=== PATIENT | female | born 2000 | race Caucasian/White ===

== ENCOUNTER → 2021-08-18 | Outpatient (REF) | payer OTHER ==
[2021-08-18 21:11] LABS: HCG, SERUM QUALITATIVE POSITIVE (NEGATIVE)
[2021-08-18 21:26] LABS: HCG, SERUM QUANTITATIVE 5700 MIU/ML; HEPATITIS C VIRUS ABY INDEX < 0.0 INDEX (<0.8); HIV 1&2 SCREEN CENTAUR NEGATIVE (NEGATIVE)
== END ==
LOC: M LAB REF 20:01
PROVIDERS: ATTEND Physician Assistant Medical
DX: Z34.90 Encounter for supervision of normal pregnancy, unspecified, unspecified trimester (principal); Z3A.00 Weeks of gestation of pregnancy not specified

== ENCOUNTER 2021-08-29 22:30 | Emergency (ER) | payer OTHER ==
[~2021-08-29] VITALS: Ht 154.9 cm; Wt 79.5 kg
[2021-08-29 22:31] VITALS: BP 121/69
== END 2021-08-30 00:38 | disposition left against medical advice (07) ==
LOC: M ED 22:30
DX: Z53.21 Procedure and treatment not carried out due to patient leaving prior to being seen by health care provider (principal)

== ENCOUNTER 2022-03-21 07:18 | Outpatient (CLI) | payer OTHER ==
[~2022-03-21] VITALS: Ht 165.1 cm; Wt 95.3 kg
[2022-03-21 08:00] VITALS: BP 138/79
[2022-03-21] MEDS ORDERED: PRENTAB9 PO (08:00)
[2022-03-21] MEDS ORDERED: TUMS500C PO (08:00)
[2022-03-21] MEDS ORDERED: HOME MED LIST COMPLETE! XX SCH (08:00)
== END 2022-03-21 08:40 | disposition home or self-care (01) ==
LOC: M LDO 07:18
PROVIDERS: ATTEND Obstetrics & Gynecology
DX: O26.893 Other specified pregnancy related conditions, third trimester (principal); R25.2 Cramp and spasm; Z3A.35 35 weeks gestation of pregnancy
CPT/HCPCS: 59025; G0463

== ENCOUNTER 2022-04-20 11:27 | Inpatient (IN) | payer OTHER ==
[2022-04-20] VITALS (29 sets, daily range): BP systolic 125–165; BP diastolic 68–102
[~2022-04-20] VITALS: Ht 165.1 cm; Wt 100.5 kg
[~2022-04-20 11:27] MED LIST: PRENTAB9 PO; TUMS500C PO
[2022-04-20] MEDS ORDERED: HOME MED LIST COMPLETE! XX SCH (12:05)
[2022-04-20] MEDS ORDERED: LIDOCAINE 1% MDV 20ML VIAL INFIL PRN (14:50)
[2022-04-20] MEDS ORDERED: METHYLERGONOVINE MALEATE 0.2 MG/ML VIAL (J2210) IM PRN (14:50)
[2022-04-20] MEDS ORDERED: TRANEXAMIC ACID INJection 1,000 MG in NS 100 ML IV PRN (14:50)
[2022-04-20] MEDS ORDERED: OXYTOCIN INJ 10 UNITS/ML VIAL (J2590) IM PRN (14:50)
[2022-04-20] MEDS ORDERED: LACTATED RINGER'S 1000 ML IV STA (14:50)
[2022-04-20] MEDS ORDERED: OXYTOCIN DRIP 30 UNITS in IV 1 EA IV PRN ×6 (14:50)
[2022-04-20] MEDS ORDERED: LR 1,000 ML IV SCH (14:50)
[2022-04-20] MEDS ORDERED: miSOPROStol 50MCG 1/2 TABLET PO ONE (14:50)
[2022-04-20] MEDS ORDERED: OXYTOCIN INJ 10 UNITS/ML VIAL (J2590) IV PRN (14:50)
[2022-04-20] MEDS ORDERED: OXYTOCIN DRIP 30 UNITS in IV 1 EA IV SCH (14:50)
[2022-04-20] MEDS ORDERED: CARBOPROST TROMETHAMINE 250 MCG/ML AMP IM PRN (14:50)
[2022-04-20] MEDS ORDERED: PENICILLIN G POTASSIUM IV 5 MU in D5W MINI-BAG PLUS 100 ML IV STA (14:50)
[2022-04-20 16:07] LABS: HEMATOCRIT 36.1 % (36.0-47.0); HEMOGLOBIN 12.4 g/dl (12.0-15.5); MEAN CORPUSCULAR HEMOGLOBIN 30.2 pg (27.0-33.0); MEAN CORPUSCULAR HGB CONC 34.3 g/dl (32.0-36.5); MEAN CORPUSCULAR VOLUME 87.8 fl (80.0-96.0); PLATELET COUNT, AUTOMATED 214 10^3/uL (150-450); RED BLOOD COUNT 4.11 10^6/uL (4.00-5.40); WHITE BLOOD COUNT 9.9 10^3/uL (4.0-10.0)
[2022-04-20 17:16] LABS: ALT/SGPT 34 U/L (12-78); BILIRUBIN,TOTAL 0.3 MG/DL (0.2-1.0); CREATININE FOR GFR 0.55 MG/DL (0.55-1.30); GLOMERULAR FILTRATION RATE > 60.0 (>60); LDH LACTATE DEHYDROGENASE 178 U/L (84-246); URIC ACID 6.2 MG/DL (2.6-6.0)
[2022-04-20] MEDS: LR 1,000 ML IV SCH ×2 (17:37→20:33)
[2022-04-20 18:51] LABS: CREATININE,RANDOM URINE 30.2 MG/DL; TOTAL PROTEIN,RANDOM URINE 6.6 MG/DL (0.0-12.0)
[2022-04-20] MEDS: PENICILLIN G POTASSIUM IV 2.5 MU in IV 1 EA IV SCH (20:33)
[2022-04-20] MEDS ORDERED: NALOXONE INJ 0.4MG/1ML VIAL (J2310 PER 1MG) IV PRN (21:40)
[2022-04-20] MEDS ORDERED: LR 500 ML IV PRN (21:40)
[2022-04-20] MEDS ORDERED: diphenhydrAMINE 50MG/ML VIAL (J1200) IV PRN (21:40)
[2022-04-20] MEDS ORDERED: FENTANYL/ROPIVACAINE/NACL BAG 100 ML EPIDURAL SCH (21:40)
[2022-04-20] MEDS ORDERED: EPIDURAL/PCA KEYS XX PRN (21:40)
[2022-04-20] MEDS ORDERED: ONDANSETRON 4MG 2ML VIAL IV PRN (21:40)
[2022-04-20] MEDS ORDERED: ePHEDrine SULFATE 25 MG/5 ML(5MG/ML) SYRINGE IVP PRN (21:40)
[2022-04-21] VITALS (51 sets, daily range): BP systolic 108–205; BP diastolic 55–123
[2022-04-21] MEDS: PENICILLIN G POTASSIUM IV 2.5 MU in IV 1 EA IV SCH (00:30)
[2022-04-21 04:27] LABS: CORD GAS ABE V -8.9; CORD GAS HCO3 V 17.9 MEQ/L; CORD GAS O2 SAT V 58.5 %; CORD GAS PCO2 V 41.8 mmHg; CORD GAS PH V 7.249 UNITS; CORD GAS PO2 V 27.8 mmHg; CORD GAS SBC V 16.6 MEQ/L; CORD GAS TCO2 V 19.2 MEQ/L
[2022-04-21 04:28] LABS: CORD GAS ABE A -8.2; CORD GAS HCO3 A 20.1 MEQ/L; CORD GAS O2 SAT A 55.2 %; CORD GAS PCO2 A 51.6 mmHg; CORD GAS PH A 7.208 UNITS; CORD GAS PO2 A 28.4 mmHg; CORD GAS SBC A 17.1 MEQ/L; CORD GAS TCO2 A 21.7 MEQ/L
[2022-04-21] MEDS ORDERED: ANUSOL HC CREAM 30GM TOP PRN (04:40)
[2022-04-21] MEDS ORDERED: DIBUCAINE 1% OINTMENT 30GM TOP PRN (04:40)
[2022-04-21] MEDS ORDERED: DOCUSATE SODIUM 100MG CAPSULE PO PRN (04:40)
[2022-04-21] MEDS ORDERED: RHOGAM 300 MCG (1500 IU) INJ (J2790) IM SCH (04:40)
[2022-04-21] MEDS ORDERED: MOM 30ML SUSPENSION UDC PO PRN (04:40)
[2022-04-21] MEDS ORDERED: LABETALOL 100MG/20ML VIAL IV STA (06:12)
[2022-04-21] MEDS ORDERED: MAG Sulf (L&D) 4 GM/100 ML 4 GM in IV 1 EA IV ONE (06:25)
[2022-04-21] MEDS: LABETALOL 100MG/20ML VIAL IV SCH ×14 (06:35→08:45)
[2022-04-21 06:40] LABS: ALT/SGPT 31 U/L (12-78); BILIRUBIN,TOTAL 0.2 MG/DL (0.2-1.0); CREATININE FOR GFR 0.74 MG/DL (0.55-1.30); GLOMERULAR FILTRATION RATE > 60.0 (>60); LDH LACTATE DEHYDROGENASE 191 U/L (84-246); URIC ACID 8.2 MG/DL (2.6-6.0)
[2022-04-21] MEDS: MAG Sulf (OBGYN) 20GM/500ML 20,000 MG in IV 1 EA IV SCH ×2 (07:15→17:42)
[2022-04-21] MEDS: PRENATAL VITAMINS CHEWABLE TABLET PO SCH (11:00)
[2022-04-21] MEDS: ACETAMINOPHEN 500 MG TAB PO PRN (17:28)
[2022-04-21] MEDS ORDERED: LR 1,000 ML IV SCH (19:00)
[2022-04-22] VITALS (10 sets, daily range): BP systolic 107–135; BP diastolic 57–88
[2022-04-22] MEDS: ACETAMINOPHEN 500 MG TAB PO PRN (03:19)
[2022-04-22] MEDS: MAG Sulf (OBGYN) 20GM/500ML 20,000 MG in IV 1 EA IV SCH (04:14)
[2022-04-22] MEDS: PRENATAL VITAMINS CHEWABLE TABLET PO SCH (08:39)
[2022-04-22] MEDS: IBUPROFEN 800 MG TAB PO PRN (09:08)
[2022-04-23] MEDS: IBUPROFEN 800 MG TAB PO PRN (01:47)
[2022-04-23 02:00] VITALS: BP 129/67
[2022-04-23 06:00] VITALS: BP 113/65
[2022-04-23] MEDS: PRENATAL VITAMINS CHEWABLE TABLET PO SCH (08:17)
[2022-04-23] MEDS ORDERED: COLA100C5 PO (08:20)
[2022-04-23] MEDS ORDERED: PRENCHW PO (08:20)
[2022-04-23] MEDS ORDERED: IBUP80TA PO (08:20)
[2022-04-23] MEDS ORDERED: MEASLES,MUMPS,RUBELLA VACCINE INJ (MMR-II) (90707) SC.IMMUN ONE (09:00)
[2022-04-23 10:00] VITALS: BP 120/63
== END 2022-04-23 13:20 | disposition home or self-care (01) | DRG 807 ==
LOC: M LDO 11:27 → M LDI 15:16 → M OBS 04-21 14:13
PROVIDERS: ADMIT Obstetrics & Gynecology; ATTEND Obstetrics & Gynecology
PROC: 10E0XZZ Delivery of Products of Conception, External Approach (ICD-10-PCS; principal; 2022-04-21)
PROC: 0HQ9XZZ Repair Perineum Skin, External Approach (ICD-10-PCS; 2022-04-21)
DX: O13.4 Gestational [pregnancy-induced] hypertension without significant proteinuria, complicating childbirth (principal); Z37.0 Single live birth; Z3A.39 39 weeks gestation of pregnancy; O26.02 Excessive weight gain in pregnancy, second trimester; O99.824 Streptococcus B carrier state complicating childbirth; O32.6XX0 Maternal care for compound presentation, not applicable or unspecified; O70.0 First degree perineal laceration during delivery

== ENCOUNTER 2022-05-09 22:42 | Emergency (ER) | payer OTHER ==
[~2022-05-09] VITALS: Ht 165.1 cm; Wt 88.2 kg
[~2022-05-09 22:42] MED LIST changes: +COLA100C5 PO; +IBUP80TA PO; +PRENCHW PO
[2022-05-09] MEDS ORDERED: ACETAMINOPHEN 325 MG TAB PO ONE (22:55)
[2022-05-09 23:21] LABS: BASO % 0.3 % (0.0-1.0); EOS # 0.1 10^3/uL (0.0-0.5); HEMATOCRIT 36.7 % (36.0-47.0); HEMOGLOBIN 11.9 g/dl (12.0-15.5); LYMPH # 0.9 10^3/uL (1.5-5.0); LYMPH % 7.8 % (24.0-44.0); MEAN CORPUSCULAR HEMOGLOBIN 29.3 pg (27.0-33.0); MEAN CORPUSCULAR HGB CONC 32.4 g/dl (32.0-36.5); MEAN CORPUSCULAR VOLUME 90.4 fl (80.0-96.0); MONO # 0.7 10^3/uL (0.0-0.8); MONO % 6.6 % (2.0-8.0); NEUTROPHILS # 9.3 10^3/uL (1.5-8.5); NEUTROPHILS % 83.7 % (36.0-66.0); PLATELET COUNT, AUTOMATED 305 10^3/uL (150-450); RED BLOOD COUNT 4.06 10^6/uL (4.00-5.40); WHITE BLOOD COUNT 11.1 10^3/uL (4.0-10.0)
[2022-05-09 23:56] LABS: ALBUMIN 3.5 GM/DL (3.2-5.2); ALT/SGPT 58 U/L (12-78); AMYLASE 49 U/L (25-115); BILIRUBIN,DIRECT < 0.1 MG/DL (0.0-0.2); BILIRUBIN,TOTAL 0.2 MG/DL (0.2-1.0); BLOOD UREA NITROGEN 14 MG/DL (7-18); CALCIUM LEVEL 8.9 MG/DL (8.5-10.1); CARBON DIOXIDE LEVEL 22 MEQ/L (21-32); CHLORIDE LEVEL 107 MEQ/L (98-107); CREATININE FOR GFR 0.74 MG/DL (0.55-1.30); GLOMERULAR FILTRATION RATE > 60.0 (>60); GLUCOSE, FASTING 105 MG/DL (70-100); POTASSIUM SERUM 3.9 MEQ/L (3.5-5.1); SODIUM LEVEL 137 MEQ/L (136-145); TOTAL PROTEIN 6.8 GM/DL (6.4-8.2)
[2022-05-10 00:36] LABS: C REACTIVE PROTEIN QUANTITATIV 1.51 MG/DL (0.00-0.30)
[2022-05-10] MEDS ORDERED: IBUPROFEN 600MG TAB PO ONE (01:00)
[2022-05-10] MEDS ORDERED: CEPHALEXIN 500 MG CAP PO ONE (01:00)
[2022-05-10] MEDS ORDERED: CEPHALEXIN 500 MG CAP As Ordered ONE (01:38)
[2022-05-10] MEDS ORDERED: IBUPROFEN 600MG TAB As Ordered ONE (01:39)
[2022-05-10 01:50] VITALS: BP 124/74
[2022-05-10] MEDS ORDERED: CEPH500C PO (03:53)
== END 2022-05-10 01:50 | disposition home or self-care (01) ==
LOC: M ED 22:42
DX: N61.0 Mastitis without abscess (principal); I10 Essential (primary) hypertension; Z79.83 Long term (current) use of bisphosphonates; Z79.810 Long term (current) use of selective estrogen receptor modulators (SERMs)

== ENCOUNTER 2022-11-08 20:20 | Emergency (ER) | payer OTHER ==
[~2022-11-08 20:20] MED LIST changes: +CEPH500C PO
[2022-11-08] MEDS ORDERED: ACETAMINOPHEN 325 MG TAB PO ONE (20:50)
[2022-11-08] MEDS ORDERED: LIDOCAINE 5% (LIDODERM) PATCH TD ONE (20:50)
[2022-11-08 22:00] VITALS: BP 136/74
[2022-11-08] MEDS ORDERED: LIDO1PAD TOP (23:01)
== END 2022-11-08 23:11 | disposition home or self-care (01) ==
LOC: M ED 20:20
DX: M54.50 Low back pain, unspecified (principal); M47.897 Other spondylosis, lumbosacral region